=== PATIENT | female | born 1955 | race Caucasian/White ===

== ENCOUNTER 2018-03-22 19:59 | Emergency (ER) | payer BC, MEDICARE ==
[~2018-03-22] VITALS: Ht 162.6 cm; Wt 90.0 kg
[2018-03-22 20:05] VITALS: BP 148/68; PULSE 64; RESP 18; TEMP 99.1; O2SAT 98
[2018-03-22] MEDS ORDERED: FLUO40CA PO (21:19)
[2018-03-22] MEDS ORDERED: AMOXICILLIN/CLAVULANATE K 875 MG TAB PO ONE (21:30)
--- NOTE | 2018-03-22 21:31 | PD ---
HPI Chief Complaint: Bite or Sting Time Seen by Provider: 21:28 Travel History International Travel<30 days: No Contact w/Intl Traveler<30days: No Traveled to known affect area: No History of Present Illness HPI 63-year-old female presents for evaluation of dog bite to left wrist. It occurred prior to arrival. She reports that her dog bit her when her dogs Dominick became caught on something and the patient was attempting to dislodge her paw. She reports pain at the site of the laceration on the left wrist, aching, worse with palpation. Denies any numbness or tingling or weakness distal to the injury site. Last tetanus vaccination unknown. Denies any other injuries and she has no other complaints at this time. [facility] Past Medical History Anxiety: Yes ?: Not Past Surgical History Abdominal Surgery: Yes (gastric bypass) Social History Alcohol Use: No Tobacco Use: No Substance Use: No Allergies-Medications (Allergen,Severity, Reaction): Coded Allergies: cephalexin (Verified Allergy, Unknown, 03/22/18) Reported Meds & Prescriptions Reported Meds & Active Scripts Active Augmentin (Amoxicillin-Clavulanate) 875-125 Mg Tab 1 Tab PO BID Reported Fluoxetine (Fluoxetine HCl) 40 Mg Cap 40 Cap PO DAILY Review of Systems Skin: Positive Other (Dog bite, pain, bleeding) Physical Exam Narrative GENERAL: Well-developed well-nourished female no acute distress SKIN: Warm and dry. There is 1.5 cm linear laceration to the volar aspect of the left wrist. MUSCULOSKELETAL: Skin as noted above. The patient maintains full muscle strength in the left hand and wrist flexion and extension. Motor strength is intact in the median, radial and ulnar nerve distributions. Sensation is intact in the median, radial and ulnar nerve distributions. Radial pulses 2+. Capillary refill less than 2 seconds all digits left hand. After the wound was anesthetized and irrigated it was explored and there is no evidence of flexor tendon damage. NEUROLOGICAL: Awake and alert. No obvious cranial nerve deficits. Motor grossly within normal limits. Normal speech. Data Data Last Documented VS Vital Signs Date Time Temp Pulse Resp B/P (MAP) Pulse Ox O2 Delivery O2 Flow Rate FiO2 03/22/18 20:05 99.1 64 18 148/68 (94) 98 Orders Orders Amoxicil-Clavulanate (Augmentin) (03/22/18 21:30) Lidocai-Epi 1%-1:100,000 Inj (Xylocaine- (03/22/18 21:30) Wrist, Complete ([id number]) (03/22/18 ) Tetanus/Diphtheria Tox Adult (Tetanus/Di (03/22/18 21:45) MDM Medical Decision Making Medical Screen Exam Complete: Yes Emergency Medical Condition: Yes Medical Record Reviewed: Yes Differential Diagnosis Dog bite, foreign body, flexor tendon laceration, cutaneous laceration, neurovascular injury, open fracture Narrative Course 63-year-old female presents after her dog bit her on the left wrist. She has a cutaneous laceration with no evidence of bone, neurovascular, flexor tendon damage. An x-ray was obtained to rule out radiopaque foreign body and is negative. The patient reports a history of Keflex allergy however she has taken Augmentin in the past with no adverse reaction. The patient was given a dose of Augmentin here and monitored for some time in order to ensure that there is no reaction. Tetanus status updated. The laceration was loosely sutured after thorough irrigation, she verbally consented. Procedures Procedure Narrative LACERATION LOCATION: Left wrist LENGTH: 1.5 cm NUMBER OF STITCHES/LESLY: 3 REPAIR: The area of the laceration was prepped with Betadine and sterilely draped. The laceration was infiltrated with 1% lidocaine with epinephrine. The wound was copiously irrigated and explored without evidence of foreign body , tendon injury or neurovascular injury. The wound was closed using 5-0 nylon simple interrupted. This was a single layer repair. A sterile dressing was applied. The patient was advised to keep the dressing clean and dry. Patient tolerated the procedure well. Diagnosis Primary Impression: Dog bite Additional Instructions: Wash the wound gently with soap and water and apply antibiotic cream twice a day. Take the antibiotic as prescribed. Return in 10-14 days for suture removal. Return sooner for signs of infection such as increasing redness around wound, pus coming from the wound, red streaks up the arm, fevers. Med/Other Pt SpecificInfo: Prescription(s) given, Wound Care Scripts Amoxicillin-Clavulanate (Augmentin) 875-125 Mg Tab 1 TAB PO BID for Infection, #10 TAB 0 Refills Prov: Gena Montejo MD 03/22/18 Disposition: 01 DISCHARGE HOME Condition: Stable Lorraine,Cory P. PA March 22, 2018 21:31
[2018-03-22] MEDS: LIDOCAINE 1%/EPINEPHrine 1:100,000 SOLN 50 ML VIAL INFIL ONE ×2 (21:38→21:39)
[2018-03-22] MEDS ORDERED: TETANUS/DIPHTHERIA TOXOID ADULT 0.5 ML VIAL IM ONE (21:45)
[2018-03-22] MEDS ORDERED: AUGM875T3 PO (22:14)
--- NOTE | 2018-03-22 22:20 | RADRPT ---
EXAM DATE/TIME: 03/22/2018 21:38 [facility] COMPARISON: No previous studies available for comparison. INDICATIONS : Dog bite. Laceration. MEDICAL HISTORY : None. SURGICAL HISTORY : None. ENCOUNTER: Initial ACUITY: 1 day PAIN SCORE: 10/10 LOCATION: Left Wrist. FINDINGS: Three view examination of the left wrist demonstrates no soft tissue swelling, dislocation, or fractu re. The carpal bones are in normal alignment. The joint spaces are maintained. Bony mineralization is normal. CONCLUSION: 1. No acute findings. Serge Nava MD on March 22, 2018 at 22:17 Board Certified Radiologist. This report was verified electronically.
== END 2018-03-22 22:44 | disposition home or self-care (01) ==
LOC: NEPE 19:59
DX: S61.552A Open bite of left wrist, initial encounter (principal); W54.0XXA Bitten by dog, initial encounter; Z23 Encounter for immunization
CPT/HCPCS: 12001; 73110; 90471; 90714

== ENCOUNTER 2018-04-01 14:36 | Emergency (ER) | payer MEDICARE ==
[~2018-04-01] VITALS: Ht 162.6 cm; Wt 94.0 kg
[~2018-04-01 14:36] MED LIST: AUGM875T3 PO; FLUO40CA PO
[2018-04-01 14:38] VITALS: BP 141/64; PULSE 65; RESP 17; TEMP 98.1; O2SAT 96
[2018-04-01] MEDS ORDERED: VITA100021 SL (14:47)
[2018-04-01] MEDS ORDERED: VITA10002 PO (14:47)
[2018-04-01] MEDS ORDERED: ERGO2000 PO (14:50)
[2018-04-01] MEDS ORDERED: FLUT1SPR5 EACH NARE (14:50)
[2018-04-01] MEDS ORDERED: FLINT2 CHEW (14:50)
[2018-04-01] MEDS ORDERED: CITRTAB7 PO (14:50)
--- NOTE | 2018-04-01 14:58 | PD ---
HPI Chief Complaint: Wound/Suture/Staple Re-Check Time Seen by Provider: 14:44 Travel History International Travel<30 days: No Contact w/Intl Traveler<30days: No Traveled to known affect area: No History of Present Illness HPI This is a 63-year-old female here for suture removal. She had a laceration repair to the left forearm 10 days prior. She denies any symptoms currently. No fever, redness, pain, drainage from the site. PFSH Past Medical History Medical History: Denies Significant Hx Anxiety: Yes Tetanus Vaccination: < 5 Years Influenza Vaccination: Yes Past Surgical History Abdominal Surgery: Yes (gastric bypass) Social History Alcohol Use: No Tobacco Use: No Substance Use: No Allergies-Medications (Allergen,Severity, Reaction): Coded Allergies: cephalexin (Verified Allergy, Unknown, 04/01/18) Reported Meds & Prescriptions Reported Meds & Active Scripts Active Reported Flintstones Complete (Iron/Minerals/Multivitamins) 60 Mg Tab 1 Tab CHEW DAILY Citracal + D3 Maximum (Calcium Citrate-Vitamin D) 315-250 Mg-Unit Tab 1 Tab PO DAILY Flonase Nasal [place] (Fluticasone Nasal [place]) 50 Mcg/Act [place] 50 Mcg EACH NARE BID Vitamin D2 (Ergocalciferol) 2,000 Unit Tab 50,000 Units PO TWICE A WK Vitamin B-12 (Cyanocobalamin) 1,000 Mcg Subl 1,000 Mcg SL MONTHLY Fluoxetine (Fluoxetine HCl) 40 Mg Cap 40 Cap PO DAILY Review of Systems Except as stated in HPI: all other systems reviewed are Neg General / Constitutional: No: Fever Physical Exam Narrative GENERAL: Alert and well-appearing 63-year-old female SKIN: Warm and dry. Well-healed laceration to left forearm without evidence of infection. HEAD: Normocephalic. EYES: No injection or drainage. NECK: Supple MUSCULOSKELETAL: No cyanosis, or edema. Data Data Last Documented VS Vital Signs Date Time Temp Pulse Resp B/P (MAP) Pulse Ox O2 Delivery O2 Flow Rate FiO2 04/01/18 14:38 98.1 65 17 141/64 (89) 96 Orders Orders Ed Discharge Order (04/01/18 14:58) MDM Medical Decision Making Medical Screen Exam Complete: Yes Emergency Medical Condition: Yes Differential Diagnosis Suture removal, wound recheck, wound infection Narrative Course 63-year-old female here for suture removal to left forearm. 3 sutures were removed. Wound is well-appearing without evidence of infection. Diagnosis Primary Impression: Visit for suture removal Referrals: Primary Care Physician Disposition: 01 DISCHARGE HOME Condition: Stable Chey Cross April 01, 2018 14:58
== END 2018-04-01 15:08 | disposition home or self-care (01) ==
LOC: PHEFT 14:36
DX: S51.812D Laceration without foreign body of left forearm, subsequent encounter (principal); F41.9 Anxiety disorder, unspecified; X58.XXXD Exposure to other specified factors, subsequent encounter; Z98.84 Bariatric surgery status; Z48.02 Encounter for removal of sutures
CPT/HCPCS: 99281